=== PATIENT | male | born 1935 | race Caucasian/White ===

== ENCOUNTER → 2020-01-03 | Outpatient (CLI) | payer OTHER ==
[2020-01-03 15:04] LABS: AMYLASE 85 U/L (25-115); LIPASE 387 U/L (73-393)
== END | disposition home or self-care (01) ==
LOC: RADPV 12:27
PROVIDERS: ATTEND Orthopaedic Surgery
DX: I25.9 Chronic ischemic heart disease, unspecified (principal); K85.90 Acute pancreatitis without necrosis or infection, unspecified; I08.3 Combined rheumatic disorders of mitral, aortic and tricuspid valves
CPT/HCPCS: 93306